=== PATIENT | female | born 1995 | race Caucasian/White ===

== ENCOUNTER 2017-01-07 11:43 | Outpatient (CLI) | payer MEDICAID ==
--- NOTE | 2017-01-07 17:31 | XRAY Report ---
TWO-VIEW CHEST: 01/07/2017 CLINICAL INDICATION: Shortness of breath. FINDINGS: Frontal and lateral views of the chest demonstrate a normal cardiac silhouette. The lungs are clear. No effusion or pneumothorax is present. IMPRESSION: NORMAL CHEST. :9 JOB #: [id number] EXT JOB #:[id number]
== END 2017-01-07 11:44 | disposition home or self-care (01) ==
LOC: DI.S 11:43
PROVIDERS: ATTEND Nurse Practitioner Family
DX: R06.02 Shortness of breath (principal)
CPT/HCPCS: 71020

== ENCOUNTER 2017-05-11 13:52 | Emergency (ER) | payer OTHER, MEDICAID ==
[2017-05-11 14:06] VITALS: BP 111/76
[2017-05-11] MEDS ORDERED: ACETAMINOPHEN 325 MG TABLET PO STA (14:28)
[2017-05-11] MEDS ORDERED: TETANUS/DIPHTHERIA/PERTUSSIS 0.5 ML SYRINGE IM ONE ×2 (14:28→14:36)
[2017-05-11] MEDS ORDERED: ACETAMINOPHEN 325 MG TABLET PO ONE (14:36)
--- NOTE | 2017-05-11 14:36 | ED Physician Documentation ---
History of Present Illness - Stated complaint Stated Complaint: HEAD INJ - Chief complaint Chief Complaint: Neuro - History obtained from History obtained from: Patient (pt reports that she was at work when a wood box came down and hit her on the head. No LOC, no other injuries from the event. she staes that she think she has a cut on her head and her work made her come in.) - History of Present Illness Timing: Prior to arrival Review of Systems Constitutional: denies: Fever, Chills Cardiac: denies: Chest pain / pressure, Palpitations Respiratory: denies: Dyspnea, Cough GI: denies: Nausea, Vomiting Neurologic: reports: Headache, Head injury. denies: Confused, LOC PD PAST MEDICAL HISTORY - Past Medical History Past Medical History: No - Past Surgical History Past Surgical History: No - Present Medications Home Medications: Ambulatory Orders Medication Instructions Recorded Confirmed No Known Home Medications [No 05/11/17 05/11/17 Known Home Medications] - Allergies Allergies/Adverse Reactions: Allergies Allergy/AdvReac Type Severity Reaction Status Date / Time No Known Drug Allergies Allergy Verified 05/11/17 14:06 - Social History Does the pt smoke?: No Smoking Status: Never smoker Does the pt drink ETOH?: No Does the pt have substance abuse?: No - Immunizations Immunizations are current?: Yes PD ED PE NORMAL - Vitals Vital signs reviewed: Yes - General General: Alert and oriented X 3, No acute distress, Well developed/nourished - HEENT HEENT: Moist mucous membranes. No: Atraumatic (pt with a 1 cm abrasion to ehr left parietal area of her scalp. no acitve bleeding. ) - Neck Neck: No bony TTP - Cardiac Cardiac: RRR - Respiratory Respiratory: No respiratory distress - Derm Derm: Other (abrasion to the scalp ) - Neuro Neuro: Alert and oriented X 3 Eye Opening: Spontaneous Motor: Obeys Commands Verbal: Oriented GCS Score: 15 - Psych Psych: Normal mood, Normal affect Results - Vitals Vitals: Vital Signs - 24 hr 05/11/17 14:02 Temperature 36.9 C Heart Rate 69 Respiratory 16 Rate Blood Pressure 111/76 O2 Saturation 100 Oxygen O2 Source Room air PD MEDICAL DECISION MAKING - ED course Complexity details: d/w patient ED course: pt with closed head injury and normal neuro exam. abrasion on the scalp does not need stitches. Will hold on head CT for now. work forms completed. pt updated on Td Departure - Departure Disposition: 01 Home, Self Care Clinical Impression: Closed head injury, Scalp abrasion Condition: Good Instructions: ED Head Injury Closed Follow-Up: Shelley Mcintyre ARNP [Primary Care Provider] - Comments: you may return to work. tylenol for any headache. keep the abrasion clean. return to the ER for any new or worsening symptoms.
== END 2017-05-11 14:44 | disposition home or self-care (01) ==
LOC: ED 13:52
DX: S09.90XA Unspecified injury of head, initial encounter (principal); S00.01XA Abrasion of scalp, initial encounter; W22.8XXA Striking against or struck by other objects, initial encounter; Y99.0 Civilian activity done for income or pay; Z23 Encounter for immunization
CPT/HCPCS: 1040M; 90471; 90715; 99283; A9270

== ENCOUNTER 2019-02-20 09:36 | Emergency (ER) | payer MEDICAID ==
[2019-02-20 09:51] VITALS: BP 121/77
[2019-02-20] MEDS ORDERED: LIDOCAINE 2% 10 ML MDV SUBQ STA (09:51)
--- NOTE | 2019-02-20 10:18 | ED Physician Documentation ---
PD HPI UPPER EXT INJURY - Stated complaint Stated Complaint: R THUMB INJ - Chief complaint Chief Complaint: Ext Problem - History obtained from History obtained from: Patient - History of Present Illness Location: Right, Finger (thumb) Type of injury: Crush (car door) Where injury occurred: Home Timing - onset: Yesterday Timing - duration: Days (2) Timing - details: Gradual onset Pain level max: 6 Pain level now: 5 Improved by: Rest Worsened by: Moving, Palpating Associated symptoms: No: Weakness, Numbness, Tingling, Swelling Contributing factors: No: Anticoagulated Recently seen: Not recently seen Review of Systems : denies: Now EGA PD PAST MEDICAL HISTORY - Past Medical History Past Medical History: No - Past Surgical History Past Surgical History: No - Present Medications Home Medications: Ambulatory Orders Medication Instructions Recorded Confirmed No Known Home Medications 05/11/17 02/20/19 - Allergies Allergies/Adverse Reactions: Allergies Allergy/AdvReac Type Severity Reaction Status Date / Time No Known Drug Allergies Allergy Verified 05/11/17 14:06 - Social History Does the pt smoke?: No Smoking Status: Never smoker Does the pt drink ETOH?: No Does the pt have substance abuse?: No - Immunizations Immunizations are current?: Yes PD ED PE NORMAL - Vitals Vital signs reviewed: Yes - General General: Alert and oriented X 3, No acute distress - HEENT HEENT: Moist mucous membranes - Derm Derm: Warm and dry - Extremities Extremities: Other (R thumb mild TTP distal phalanx. Subungual hematoma present. ) Results - Vitals Vitals: Vital Signs - 24 hr 02/20/19 09:45 Temperature 36.0 C L Heart Rate 78 Respiratory 16 Rate Blood Pressure 121/77 O2 Saturation 100 Oxygen O2 Source Room air - Rads (name of study) R thumb xray Radiology: Prelim report reviewed, EMP read contemporaneously, See rad report (normal) Procedures - General procedure General procedure: 2% lidocaine was used as a digital block over the right thumb. When anesthesia was achieved, electrocautery was used to trephinate the nail and the subungual hematoma was evacuated. Tolerated well. No complications. PD MEDICAL DECISION MAKING - ED course Complexity details: considered differential, d/w patient, d/w family ED course: Subungual hematoma drained. Patient tolerated well. Feels better. No acute findings on x-ray. Patient counseled regarding signs and symptoms for which I believe and urgent re-evaluation would be necessary. Patient with good understanding of and agreement to plan and is comfortable going home at this time This document was made in part using voice recognition software. While efforts are made to proofread this document, sound alike and grammatical errors may occur. Departure - Departure Disposition: 01 Home, Self Care Clinical Impression: Subungual hematoma Condition: Good Instructions: ED Hematoma Subungual Follow-Up: your,doctor as needed. [Other] Comments: Soak the area 3-4 times daily for the next 2-3 days in warm water to help the blood drain. Return if you worsen. Return if you notice redness, swelling or drainage from the digit. Discharge Date/Time: 02/20/19 10:40
--- NOTE | 2019-02-20 10:55 | XRAY Report ---
Reason: R thumb crush Procedure Date: 02/20/2019 Accession Number: [id number] / [id number] Procedure: XR - Finger(s) RT CPT Code: FULL RESULT: EXAM: RIGHT FIRST DIGIT RADIOGRAPHY EXAM DATE: 02/20/2019 10:10 AM. CLINICAL HISTORY: R thumb crush. COMPARISON: None. TECHNIQUE: 3 views. FINDINGS: Bones: No fractures or bone lesions. Joints: Unremarkable. Soft Tissues: Unremarkable. IMPRESSION: 1. No acute osseous abnormality. [facility]
== END 2019-02-20 10:40 | disposition home or self-care (01) ==
LOC: ED 09:36
DX: S60.111A Contusion of right thumb with damage to nail, initial encounter (principal); V48.4XXA Person boarding or alighting a car injured in noncollision transport accident, initial encounter; Y92.008 Other place in unspecified non-institutional (private) residence as the place of occurrence of the external cause
CPT/HCPCS: 11740; 73140; 99283